=== PATIENT | male | born 1990 | race Caucasian/White ===

== ENCOUNTER 2016-06-10 05:01 | Emergency (ER) | payer BC ==
--- NOTE | ~2016-06-10 | CT2 ---
[facility]. [facility] A Service of [facility] RADIOLOGY TEXT RESULTS PATIENT: SUMAN DIAS LOCATION: SED : 86 UNIT #: [id number] AGE: [address]: Duane Salazar MD SEX: M ORDER DR: [id number] [place] [id number] E MR#: [id number] Acc #: [id number] NAME: SUMAN DIAS : 1990 SEX: M STUDY DATE/TIME: 06/10/2016 5:25 UNIT: SED ROOM: STUDY DESCRIPTION: CT Abd and Pelv W Cont Attending Physician: Duane Salazar M.D. Ordering Physician: Duane Salazar M.D. Primary Care Physician: Lluvia Flannery A.P.R.N. MEDICAL IMAGING REPORT This report is preliminary unless electronic signature is present. EXAM CT abdomen and pelvis with contrast 06/10/2016 INDICATIONS A 25-year-old male with right upper quadrant and lower quadrant pain for 2 days; contrast-enhanced abdomen and pelvis CT was performed compared 11/16/[address] exam was performed with one or more of the following radiation dose reduction techniques: automatic exposure control, adjustment of mA and/or kV according to patient size, and iterative reconstruction. This CT exam was performed with one or more of the following radiation dose reduction techniques: automatic exposure control, adjustment of mA and/or kV according to patient size, and iterative reconstruction. FINDINGS CT abdomen: Included lung bases clear. No effusion or pericardial effusion. Aorta unremarkable. Spleen, adrenal glands, pancreas, gallbladder and liver unremarkable. Kidneys demonstrate a nonobstructing stone in the mid pole left kidney measuring about [address] pelvis: Bladder unremarkable. Prostate within normal limits. No drainable fluid collection in the pelvis. Bowel and appendix unremarkable. Inguinal canals unremarkable. Tiny umbilical hernia containing fat only. No suspicious bone lesion. IMPRESSION 1. Negative contrast-enhanced abdomen and pelvis CT. No bowel [facility] A Service of [facility] RADIOLOGY TEXT RESULTS PATIENT: SUMAN DIAS LOCATION: [facility] [place] [birth year] UNIT #: [id number] AGE: [address]: Duane Salazar MD SEX: M ORDER DR: obstruction, drainable fluid collection or focal area of inflammatory change. The appendix is normal. 2. Incidental 4 mm nonobstructing stone in the left kidney. Dictated by... Lb Tang M.D. THIS IS AN ELECTRONICALLY VERIFIED REPORT Lb Tang M.D. at 06/10/2016 2:31 PM Nando TD: 06/10/2016 12:36 JOB #: [id number] MEDICAL IMAGING REPORT
[~2016-06-10 05:01] MED LIST: BACLOFEN10 MG PO; KLONOPIN PO; LIORESAL10 MG PO; NORCO 10-325 TA1 TAB PO; NORVASC PO
[2016-06-10 05:24] LABS: BASOPHIL# 0.1 X10e3 (0-0.3); BASOPHIL% 1.3 % (0-2.5); EOSINOPHIL# 0.2 X10e3 (0-0.7); EOSINOPHIL% 3.2 % (0.0-7.0); HEMATOCRIT 44.8 % (38.0-50.0); HEMOGLOBIN 15.2 gm/dL (13.0-16.0); LYMPHOCYTE# 1.5 X10e3 (1.0-3.5); LYMPHOCYTE% 24.8 % (17.0-45.0); MEAN CELL VOLUME 86.3 FL (83-96); MEAN CORPUSCULAR HEMOGLOBIN 29.3 PG (28-34); MEAN CORPUSCULAR HGB CONC 33.9 g/dL (30-36); MEAN PLATELET VOLUME 7.3 FL (6.5-11.5); MONOCYTE# 0.3 X10e3 (0-1.0); MONOCYTE% 5.4 % (3.0-12.0); NEUTROPHIL# 3.8 X10e3 (1.5-7.1); NEUTROPHIL% 65.3 % (40-75); PLATELET COUNT 343 X10e3 (140-420); RED BLOOD COUNT 5.18 X10e (3.90-5.60); RED CELL DISTRIBUTION WIDTH 13.7 % (11.0-15.5); WHITE BLOOD COUNT 5.9 X10e3 (4.0-10.5)
[2016-06-10 05:26] LABS: DIFF IND NO
[2016-06-10 05:32] LABS: PROTHROMBIN TIME (PATIENT) 11.6 SECONDS (9.5-12.4)
[2016-06-10 05:42] LABS: ALBUMIN SERUM 4.2 g/dL (3.5-5.0); ALKALINE PHOSPHATASE 78 U/L (32-92); ALT (SGPT) 45 U/L (10-40); AST (SGOT) 30 U/L (10-42); BILIRUBIN, DIRECT 0.1 mg/dL (0.0-0.2); BILIRUBIN,INDIRECT 0.6 mg/dL (0.0-0.9); BILIRUBIN,TOTAL 0.7 mg/dL (0.2-2.0); BLOOD UREA NITROGEN 10 mg/dL (9-23); BUN/CREATININE RATIO 9.09; CARBON DIOXIDE 24 mmol/L (22-31); CHLORIDE 99 mmol/L (100-111); CREATININE SERUM 1.1 mg/dL (0.6-1.4); GLOM FILT RATE Estimated ABOVE60 mL/min (>60); GLUCOSE FASTING 113 mg/dL (70-110); LIPASE 18 U/L (22-51); POTASSIUM 3.2 mmol/L (3.5-5.1); PROTEIN TOTAL SERUM 7.4 g/dL (6.0-8.3); SODIUM 131 mmol/L (135-145)
[2016-06-10 05:57] LABS: URINE SOURCE CLEAN CATCH
[2016-06-10 05:59] LABS: MICRO INDICATED? NO; URINE APPEARANCE CLEAR; URINE BILIRUBIN NEG (NEG); URINE BLOOD NEG (NEG); URINE COLOR YELLOW; URINE GLUCOSE NEG (NORM); URINE KETONE NEG (NEG); URINE LEUKOCYTE ESTERASE NEG (NEG); URINE NITRATE NEG (NEG); URINE PROTEIN NEG (NEG); URINE SPECIFIC GRAVITY <=1.005 (1.003-1.035); URINE UROBILINOGEN 0.2 MG/DL (NORM)
[2016-07-10] MEDS ORDERED: TRAMADOL HCL50 M1 (10:33)
== END 2016-06-10 07:25 | disposition home or self-care (01) ==
LOC: SED 05:01
PROVIDERS: Emergency Medicine
DX: R10.31 Right lower quadrant pain (principal)
CPT/HCPCS: 36415; 74177; 80048; 80076; 81003; 83690; 85025; 85610; 85730; 96361; 96374; 96375; 99284; J1170; J2270; J2405; Q9967

== ENCOUNTER 2016-07-10 10:35 | Emergency (ER) | payer BC ==
[~2016-07-10 10:35] MED LIST changes: +TRAMADOL HCL50 M1
== END 2016-07-10 11:53 | disposition home or self-care (01) ==
LOC: SED 10:35
DX: M54.42 Lumbago with sciatica, left side (principal); Z88.5 Allergy status to narcotic agent
CPT/HCPCS: 96372; 99283; J1885